=== PATIENT | female | born 1975 | race Caucasian/White ===

== ENCOUNTER → 2017-07-10 | Outpatient (CLI) | payer BC | LOC: EEVIPCON 11:34 → FIMAGING 11:34 | PROVIDERS: ATTEND Family Medicine | DX: N63.21 Unspecified lump in the left breast, upper outer quadrant (principal) | CPT/HCPCS: G0204 ==

== ENCOUNTER 2017-10-01 23:24 | Emergency (ER) | payer BC ==
[2017-10-01 23:38] VITALS: RESP 18
[2017-10-01] MEDS ORDERED: IBUPROFEN 200 MG TAB PO ONE (23:52)
--- NOTE | 2017-10-02 01:39 | EDPHY ---
H & P Stated Complaint: says walking down steps and missed a step twisting L ankle, c/ o pain/swell Time Seen by Provider: 10/02/17 01:24 HPI/ROS: HPI The patient presents with left ankle pain which has been present for the last several hours. She was walking down a set of stairs and missed the bottom stair. She was carrying her luggage. She twisted her left ankle and fell. She has been unable to walk since and has had swelling of her foot. The pain is aching, constant, relieved when she elevates her foot. REVIEW OF SYSTEMS Constitutional: No fever, no chills. Skin: No rashes. Neurological: No headache. PMHx: Healthy Soc Hx: Just returned from a trip PHYSICAL General Appearance: Alert, no distress Eyes: Pupils equal and round no pallor or injection ENT, Mouth: Mucous membranes moist Respiratory: Breathing comfortably Neurological: A&O, moves all extremities Skin: Warm and dry, no rashes Extremities: Left dorsum of foot is edematous and slightly erythematous, left lateral ankle is edematous with mild ecchymoses, there is limited range of motion of the foot and ankle secondary to pain, there is tenderness to palpation across the dorsum of the foot and over the lateral malleolus Psychiatric: Patient is oriented X 3, there is no agitation Source: Patient Exam Limitations: No limitations - Medical/Surgical History Hx Asthma: No Hx Chronic Respiratory Disease: No Hx Diabetes: No Hx Cardiac Disease: No Hx Renal Disease: No Hx Cirrhosis: No Hx Alcoholism: No Hx HIV/AIDS: No Hx Splenectomy or Spleen Trauma: No Other PMH: breast fibroids removed, c section - Social History Smoking Status: Current every day smoker Constitutional: Initial Vital Signs Temperature (C) 36.3 C 10/01/17 23:35 Heart Rate 88 10/01/17 23:35 Respiratory Rate 18 10/01/17 23:35 Blood Pressure 103/75 10/01/17 23:35 O2 Sat (%) 95 10/01/17 23:35 O2 Delivery Mode Room Air Allergies/Adverse Reactions: No Known Allergies Allergy (Unverified 10/01/17 23:38) Home Medications: Medication Instructions Recorded Control 10/01/17 Vitamin B-12 10/01/17 Medical Decision Making - Diagnostics Imaging Results: X-ray left foot three view shows no fracture, no dislocation, interpreted by me , radiology interpretation is pending. Imaging: I viewed and interpreted images myself Differential Diagnosis: This is a 42-year-old female who presents with a fall down 1 stair with left ankle and foot pain and swelling. Differential diagnosis includes ankle fracture, ankle sprain, foot fracture, foot strain. In the emergency department, patient was given ibuprofen. X-rays were checked which did not show any obvious fracture. She was immobilized, given crutches and discharged with orthopedic follow-up. I feel she is most likely suffering from an ankle sprain. - Data Points Medications Given: Discontinued Medications Ibuprofen (Motrin) 400 mg PO EDNOW ONE Stop: 10/01/17 23:53 Last Admin: 10/01/17 23:56 Dose: 400 mg Departure - Departure Disposition: Home, Routine, Self-Care Clinical Impression: Ankle sprain Qualifiers: Encounter type: initial encounter Involved ligament of ankle: unspecified ligament Laterality: left Qualified Code(s): S93.402A - Sprain of unspecified ligament of left ankle, initial encounter Condition: Good Instructions: Ankle Sprain (ED) Additional Instructions: The x-rays obtained in the emergency department today demonstrate no evidence of an obvious fracture. Sometimes fractures are not obvious on the initial set of x-rays performed in the ED. For this reason, you should have repeat x-rays performed in 7-10 days if you are having any pain exclude the possibility of an occult fracture. The radiologist will review your x-rays in the morning and if they see anything that I have missed we will call you. I recommend you take ibuprofen 400 mg every 6 hr as needed for pain. You should elevate the ankle as much as possible. You should keep the Nael wrap on at all times. Referrals: Bailey Cervantes MD [Primary Care Provider] - As per Instructions Jasson Cain MD [Medical Doctor] - As per Instructions
[2017-10-02 02:20] VITALS: BP 108/81; PULSE 74; TEMP 98.1; O2SAT 94
== END 2017-10-02 02:01 | disposition home or self-care (01) ==
DX: S93.402A Sprain of unspecified ligament of left ankle, initial encounter (principal); F17.200 Nicotine dependence, unspecified, uncomplicated; W10.9XXA Fall (on) (from) unspecified stairs and steps, initial encounter; Y93.89 Activity, other specified
CPT/HCPCS: L4386

== ENCOUNTER → 2017-10-21 | Outpatient (CLI) | payer BC | LOC: BMCIMAGING 13:51 | PROVIDERS: ATTEND Podiatrist Foot & Ankle Surgery | DX: S92.025D Nondisplaced fracture of anterior process of left calcaneus, subsequent encounter for fracture with routine healing (principal) ==

== ENCOUNTER → 2018-01-07 | Outpatient (CLI) | payer BC | LOC: FIMAGING 12:25 | PROVIDERS: ATTEND Podiatrist Foot & Ankle Surgery | DX: S92.05 Other extraarticular fracture of calcaneus (principal) ==

== ENCOUNTER → 2018-07-01 | Outpatient (CLI) | payer BC | LOC: FIMAGING 14:20 | PROVIDERS: ATTEND Family Medicine | DX: Z12.31 Encounter for screening mammogram for malignant neoplasm of breast (principal) ==